=== PATIENT | male | born 1985 | race Caucasian/White ===

== ENCOUNTER 2017-10-25 10:48 | Emergency (ER) | payer MEDICAID, OTHER ==
[2017-10-25] MEDS: SOD CHLORIDE 0.9% 1,000 ML IV (12:12)
[2017-10-25] MEDS: ACETAMINOPHEN 500 MG TAB PO (12:13)
[2017-10-25 12:33] LABS: ADD MAN DIFF? NO
[2017-10-25 12:37] LABS: WHITE BLOOD COUNT 10.3 10^3/ul (4.8-10.8)
[2017-10-25 12:37] LABS: BASOPHILS % 0.3 % (0.0-2.0); EOSINOPHILS % 0.2 % (0.0-7.0); HEMOGLOBIN 15.1 g/dl (14.0-18.0); LYMPHOCYTES # 2.3 10^3/ul (0.8-2.9); LYMPHOCYTES % 22.3 % (15.0-51.0); MEAN CORPUSCULAR HEMOGLOBIN 29.5 pg (29.0-33.0); MEAN CORPUSCULAR HGB CONC 34.3 g/dl (32.0-37.0); MEAN CORPUSCULAR VOLUME 85.9 fl (82.0-101.0); MONOCYTE # 0.8 10^3/ul (0.3-0.9); MONOCYTES % 7.8 % (0.0-11.0); NEUTROPHIL # 7.1 10^3/ul (1.6-7.5); PLATELET COUNT 195 10^3/UL (140-415); RED BLOOD COUNT 5.12 10^6/ul (4.70-6.10); RED CELL DISTRIBUTION WIDTH 13.1 % (11.5-14.5)
[2017-10-25 12:56] LABS: AMPHETAMINE/METHAMPHETAMINE Negative (NEGATIVE); BARBITURATES Negative (NEGATIVE); BENZODIAZEPINES Negative (NEGATIVE); CANNABINOIDS Negative (NEGATIVE); COCAINE Negative (NEGATIVE); OPIATES Negative (NEGATIVE)
[2017-10-25 13:19] LABS: ANION GAP 21 (8-16); BLOOD UREA NITROGEN 8 mg/dl (7-20); CALCIUM 9.1 mg/dl (8.4-10.2); CARBON DIOXIDE 24 mmol/L (21-31); CHLORIDE 107 mmol/L (97-110); CREATININE 0.88 mg/dl (0.61-1.24); GLUCOSE 121 mg/dl (70-220); POTASSIUM 3.8 mmol/L (3.5-5.1); SODIUM 148 mmol/L (135-144)
[2017-10-25 13:20] LABS: INR 1.04; PROTIME 13.7 Sec (11.9-14.9); PT RATIO 1.1
[2017-10-25] MEDS: SOD CHLORIDE 0.9% 100 ML (14:11)
[2017-10-25] MEDS: IOHEXOL 300MG/ML 150 ML BTL (14:12)
[2017-10-25 14:31] LABS: PARTIAL THROMBOPLASTIN TIME 26.2 Sec (25.0-35.0)
[2017-10-25] MEDS: LIDOCAINE 1%/EPI 30 ML INJ INJ (15:31)
== END 2017-10-25 16:25 | disposition home or self-care (01) ==
LOC: FTE 10:48
DX: S01.01XA Laceration without foreign body of scalp, initial encounter (principal); S01.81XA Laceration without foreign body of other part of head, initial encounter; R06.02 Shortness of breath; V49.40XA Driver injured in collision with unspecified motor vehicles in traffic accident, initial encounter
CPT/HCPCS: 12002; 70450; 70486; 71260; 72125; 73562; 73590; 73610-RT; 73630; 74177; 80048; 80306; 80307; 85025; 85610; 85730; 99285-25

== ENCOUNTER 2017-11-01 08:35 | Emergency (ER) | payer MEDICAID | END 2017-11-01 09:15 | disposition home or self-care (01) | LOC: FTE 08:35 | DX: Z48.02 Encounter for removal of sutures (principal) | CPT/HCPCS: 99281; Z7502 ==